=== PATIENT | male | born 1995 | race Caucasian/White ===

== ENCOUNTER 2016-10-20 15:23 | Emergency (ER) | payer OTHER ==
[~2016-10-20] VITALS: Ht 177.8 cm; Wt 75.0 kg
[2016-10-20 15:26] VITALS: Ht 177.8 cm; Wt 75.0 kg
[2016-10-20] MEDS ORDERED: HYDROCODONE/APAP (10/325) TAB PO ONE (17:30)
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
[2016-10-20] MEDS ORDERED: NAPR-260 PO (20:10)
[2016-10-20] MEDS ORDERED: HYDR-902 PO (20:10)
[2016-10-20] MEDS ORDERED: CYCL-319 PO (20:11)
[2016-10-20 21:00] VITALS: BP 150/94; PULSE 70; RESP 20; TEMP 98.9
== END 2016-10-20 20:35 | disposition home or self-care (01) ==
LOC: FTE 15:23
DX: S19.9XXA Unspecified injury of neck, initial encounter (principal); R51 Headache; V49.50XA Passenger injured in collision with unspecified motor vehicles in traffic accident, initial encounter
CPT/HCPCS: 70450; 72072; 72100; 72125